=== PATIENT | male | born 1955 | race Caucasian/White ===

== ENCOUNTER 2017-01-05 13:03 | Emergency (ER) | payer OTHER ==
[2017-01-05 13:11] VITALS: BP 139/91; PULSE 74; TEMP 98.4; BMI 21.2
[2017-01-05] MEDS ORDERED: ONDANSETRON 4 MG/2 ML VIAL IVPUSH ONE (14:10)
[2017-01-05] MEDS ORDERED: morphine CARPU-JECT 4 MG/1 ML DISP.SYRIN IVPUSH ONE (14:10)
[2017-01-05] MEDS ORDERED: SODIUM CHLORIDE 1,000 ML IV ONE (14:14)
--- NOTE | 2017-01-05 14:21 | PDOC ---
Attending Attestation - Medical Decision Making 01/05/17 14:43 Procedure note Focused ED ultrasound performed RUQ and renal. indication: RUQ, right side abd pain finding: GB scanned with curvilinear probe, scanned in two planes Normal gallblader, no stones no wall thickening no wall edema. positive sonographic arriaga's Anterior gallbladder wall 2 mm CBD measured 4.8 mm impression: normal gallbladder cirilli focused ED ultrasound bilateral renals indication: flankpain finding : both kidneys scanned in saggital and transverse views. no hydronephrosis noted. bladder nondistended. impression : normal renal ultrasound, nondistended bladder. cirilli 01/05/17 14:48 <Loulou Mckeon - Last Filed: 01/05/17 14:43> - Resident Resident Name: Tree Paredes - ED Attending Attestation I have performed the following: I have examined & evaluated the patient, The case was reviewed & discussed with the resident, I agree w/resident's findings & plan, Exceptions are as noted - HPI HPI: 01/05/17 14:19 61-year-old male with history of hypertension, high cholesterol, diabetes presents with 3 days of intermittent right upper quadrant pain described as sharp, severe, but without associated fever/chills/nausea/vomiting, only slightly decreased appetite this morning. No history of postprandial abdominal pain, only surgical history was appendectomy in the distant past. - Physicial Exam PE: 01/05/17 14:21 Afebrile. Well-appearing, well-hydrated Abdomen is soft/nondistended. Tender with guarding in the right upper quadrant, no CVA tenderness No rash - Medical Decision Making 01/05/17 14:21 Patient seen and evaluated with the resident. I agree with the overall evaluation, assessment, and management with the following summary of visit: 61-year-old male with intermittent right upper quadrant pain for 3 days. Presentation and exam seem most consistent with biliary colic/cholecystitis, rule out gastric or renal source, less likely cardiopulmonary. Labs including lipase Urinalysis Right upper quadrant ultrasound Pain control, nausea control Reassess 01/05/17 16:14 no leukocytosis, normal chemistries. RUQ sono wnl. UA and EKG pending. Given R abd findings/guarding, will check CTAP. <Allen Sawrtz - Last Filed: 01/05/17 17:12> Heart Score/ECG Review #1 General ECG Interpretation: Sinus Rhythm, Normal Rate (69), Normal Intervals ( LVH), No acute ischemic changes <Allen Swartz - Last Filed: 01/05/17 17:12>
[2017-01-05] MEDS ORDERED: morphine CARPU-JECT 4 MG/1 ML DISP.SYRIN ONE (14:35)
[2017-01-05] MEDS ORDERED: ONDANSETRON 4 MG/2 ML VIAL ONE (14:35)
[2017-01-05 15:04] LABS: BASOPHIL 0.6 % (0-2.0); EOSINOPHIL 3.7 % (0-4.5); MCH 31.5 pg (25.7-33.7); MCHC 33.9 g/dl (32.0-35.9); MEAN CELL VOLUME 92.7 fl (80-96); MEAN PLT VOLUME 9.5 fl (7.5-11.1); NEUTROPHILS 67.6 % (42.8-82.8); PLATELET COUNT 241 K/MM3 (134-434); RDW 13.6 % (11.9-15.9); WHITE BLOOD COUNT 6.3 K/mm3 (4.0-10.0)
--- NOTE | 2017-01-05 15:04 | PDOC ---
History of Present Illness - General Chief Complaint: Pain Stated Complaint: RT SIDE/ABD PAIN Time Seen by Provider: 01/05/17 13:50 - History of Present Illness Initial Comments: 01/05/17 14:58 61 yo M with h/o HTN, DM, and appendectomy who presents with RUQ pain. Pt. reports worsening, non radiating, sharp, abdominal pain of 72 hours duration. Denies associated symptoms . Slight decrease in appetite. Denies N/V, fevers/ chills, chest pain, SOB, constipation/diarrhea, or blood in stool, back or flank pain, or urinary complaints. Denies postprandial pain, or exacerbating, or alleviating factors. Pain not alleviated with OTC denisse seltzer, pepcid, or positional change. States that he has had no recent change in diet, and endorses 1 pint of alcohol on weekends. Past History - Past Medical History Allergies/Adverse Reactions: Allergies Allergy/AdvReac Type Severity Reaction Status Date / Time No Known Allergies Allergy Verified 01/05/17 13:09 Home Medications: Ambulatory Orders Aspirin [Aspirin EC] 81 mg PO DAILY 01/05/17 Atorvastatin Ca [Lipitor] 80 mg PO HS 01/05/17 Clopidogrel Bisulfate [Plavix -] 75 mg PO DAILY 01/05/17 Lisinopril/Hydrochlorothiazide [Lisinopril-Hctz 10-12.5 mg Tab] 1 each PO DAILY 01/05/17 Metoprolol Succinate [Toprol Xl] 50 mg PO DAILY 01/05/17 Anemia: No Asthma: No Cancer: No Cardiac Disorders: No CVA: No COPD: No CHF: No Dementia: No Diabetes: Yes (IDDM) Disorders: Yes (PROSTATE DISEASE) HTN: Yes Hypercholesterolemia: Yes Liver Disease: No Seizures: No Thyroid Disease: No - Surgical History Abdominal Surgery: No Appendectomy: Yes Cardiac Surgery: No Cholecystectomy: No Lung Surgery: No Neurologic Surgery: No Orthopedic Surgery: No - Psycho/Social/Smoking Cessation Hx Anxiety: No Suicidal Ideation: No Smoking Status: No Smoking History: Never smoked Have you smoked in the past 12 months: No Number of Cigarettes Smoked Daily: 0 Hx Alcohol Use: Yes (OCCASIONAL) Drug/Substance Use Hx: No Substance Use Type: None Hx Substance Use Treatment: No Review of Systems - Review of Systems Comments:: 01/05/17 15:06 GENERAL/CONSTITUTIONAL: No fever or chills. No weakness. HEAD, EYES, EARS, NOSE AND THROAT: No change in vision. No ear pain or discharge. No sore throat. CARDIOVASCULAR: No chest pain or shortness of breath RESPIRATORY: No cough, wheezing, or hemoptysis. GASTROINTESTINAL: Abdominal pain No nausea, vomiting, diarrhea or constipation. GENITOURINARY: No dysuria, frequency, or change in urination. MUSCULOSKELETAL: No joint or muscle swelling or pain. No neck or back pain. SKIN: No rash NEUROLOGIC: No headache, vertigo, loss of consciousness, or change in strength/ sensation. ENDOCRINE: No increased thirst. No abnormal weight change HEMATOLOGIC/LYMPHATIC: No anemia, easy bleeding, or history of blood clots. ALLERGIC/IMMUNOLOGIC: No hives or skin allergy. *Physical Exam - Vital Signs Last Vital Signs Temp Pulse Resp BP Pulse Ox 98.4 F 74 18 139/91 98 01/05/17 13:09 01/05/17 13:09 01/05/17 13:09 01/05/17 13:09 01/05/17 13:09 - Physical Exam Comments: 01/05/17 15:06 GENERAL: Awake, alert, and fully oriented, in no acute distress HEAD: No signs of trauma, normocephalic, atraumatic EYES: PERRLA, EOMI, sclera anicteric, conjunctiva clear ENT: Auricles normal inspection, hearing grossly normal, nares patent, oropharynx clear without exudates. Moist mucosa NECK: Normal ROM, supple, no lymphadenopathy, JVD, or masses LUNGS: No distress, speaks full sentences, clear to auscultation bilaterally HEART: Regular rate and rhythm, normal S1 and S2, no murmurs, rubs or gallops, peripheral pulses normal and equal bilaterally. ABDOMEN: TTP in RUQ. Soft, normoactive bowel sounds. No guarding, no rebound. No masses. Absent rigidity, rebound, or guarding. Absent pulsatile abdomen. Absent flank pain. EXTREMITIES: Normal inspection, Normal range of motion, no edema. No clubbing or cyanosis. NEUROLOGICAL: Cranial nerves II through XII grossly intact. Normal speech, normal gait, no focal sensorimotor deficits SKIN: Warm, Dry, normal turgor, no rashes or lesions noted. Heart Score/ECG Review - Electrocardiogram EKG: Normal - Age Age: 45-65 - Risk Factors Risk Factors Heart Score: Yes Hx Hypertension, Yes Hx Diabetes - ECG Intrepretation Rhythm: Regular Rhythm - Harwood Harwood: Normal - P and UT Prominent R with upright T in V1 (true posterior DE): No Delta Wave(s) Present: No WPW: No - QRS Poor R Wave Progression: No - ST and T Early Repolarization: No Non Specific ST-T Wave changes: No Flattened T Waves: No Prolonged Q-T Interval: No - ECG Impressions Normal ECG: Yes Non-specific ST Elevation: No Ischemic Changes: No Bradycardia: No Torsades maria elena Pointes: No WPW: No ED Treatment Course - LABORATORY CBC & Chemistry Diagram: 01/05/17 14:45 01/05/17 14:45 - RADIOLOGY Radiology Studies Ordered: Category Date Time Status ABDOMEN US -LIMITED [US] Stat Ultrasound 01/05/17 14:11 Ordered Radiograph Interpretation: 01/05/17 15:54 Compared to prior upper abdomen ultrasound dated 01/28/2013 The liver is within normal limits in size with a slightly dense echotexture. Gallbladder is adequately distended without intraluminal stones or thickening of its wall. No intra or extrahepatic bile duct dilatation is seen. The right kidney measures 10.4 cm sagittal length and appears unremarkable. Visualized portion of the pancreas appears unremarkable Visualized portion of the proximal abdominal aorta and inferior vena cava appear unremarkable. Normal flow in the main portal vein IMPRESSION: Probable mild fatty infiltration of the liver. No gallstones identified. 01/05/17 19:38 EXAM#: TYPE/EXAM: RESULT: [id number] CT/ABDOMEN PELVIS CT WITH CONTR HISTORY PROVIDED: Right upper quadrant pain. Sequential axial images were obtained from the domes of the diaphragms through the symphysis pubis following the administration of both oral and intravenous contrast material. The lung bases are clear. The liver is normal in size. It is mildly hypodense in texture consistent with diffuse fatty infiltration. No mass lesions are identified within the liver. The spleen, pancreas, adrenal glands and kidneys demonstrate no significant abnormalities. There is a small left renal cyst present. The gallbladder is clear. There is no evidence of intra- abdominal or retroperitoneal lymphadenopathy or fluid collections. There is no evidence of pneumoperitoneum, bowel obstruction or intra-abdominal abscess. There is no CT evidence of acute appendicitis or diverticulitis. Examination of the pelvis demonstrates no evidence of pelvic masses, fluid collections or lymphadenopathy. IMPRESSION: Mild diffuse fatty infiltration of the liver. No evidence of acute pathology within the abdomen or pelvis. Reported By: Thuan Ma MD 01/05/17 1858 Tree Paredes Medical Decision Making - Medical Decision Making 01/05/17 15:07 61 yo M with h/o HTN, DM, and appendectomy who presents with RUQ pain. Pt. reports worsening, non radiating, sharp, RUQ abdominal pain of 72 hours duration. Denies associated symptoms. Physical exam reveals RUQ tenderness and hemodynamic stability. DDx: choleithiasis, choleycystitis, pancreatitis, Cholangitis, Diverticulitis, Colitis, PUD ED Course: CBC: Unremarkable CMP Lipase Morphine 4 mg Ondansetron 4 mg Abdominal U/S GALLBLADDER 01/05/17 15:53 CBC, CMP, Lipase: Unremarkable 01/05/17 15:54 RUQ U/S: IMPRESSION: Probable mild fatty infiltration of the liver. No gallstones identified. CT ABDOMEN: IMPRESSION: Mild diffuse fatty infiltration of the liver. No evidence of acute pathology within the abdomen or pelvis. Reported By: Thuan Ma MD 01/05/17 1858 Tree Paredes *DC/Admit/Observation/Transfer Diagnosis at time of Disposition: Fatty infiltration of liver Abdominal pain Qualifiers: Abdominal location: right upper quadrant Qualified Code(s): R10.11 - Right upper quadrant pain - Discharge Dispostion Disposition: HOME Condition at time of disposition: Improved Admit: No - Patient Instructions Printed Discharge Instructions: Nonalcoholic Fatty Liver Disease Additional Instructions: Please return to ED if you experience nausea/vomiting, fevers/chills, worsening abdominal pain, chest pain, shortness of breath., or worsening symptoms. Please f/u with your pcp for further evaluation and workup. Print Language: LAO - Attestations Physician Attestion: 01/05/17 19:39 I, Dr. Tree Paredes, attest that this document has been prepared under my direction and personally reviewed by me in its entirety. I further attest, that it accurately reflects all work, treatment, procedures and medical decision -making performed by me.
[2017-01-05 15:37] LABS: ANION GAP 10 (8-16); BILIRUBIN,TOTAL 0.7 mg/dL (0.2-1.0); CALCIUM 9.2 mg/dL (8.5-10.1); CO2 28 mmol/L (21-32); CREATININE 1.2 mg/dL (0.7-1.3); GLUCOSE,RANDOM 102 mg/dL (74-106); SGOT/AST 25 U/L (15-37); TOT PROT 7.9 g/dl (6.4-8.2)
[2017-01-05 15:38] LABS: ALK PHOS 101 U/L (45-117); SGPT/ALT 34 U/L (12-78)
[2017-01-05 18:12] LABS: URINE APPEARANCE CLEAR; URINE BILIRUBIN NEGATIVE (NEGATIVE); URINE BLOOD NEGATIVE (NEGATIVE); URINE COLOR STRAW; URINE GLUCOSE (UA) 2+ (NEGATIVE); URINE KETONE NEGATIVE (NEGATIVE); URINE LEUK ESTERASE NEGATIVE (NEGATIVE); URINE NITRITE NEGATIVE (NEGATIVE); URINE PROTEIN NEGATIVE (NEGATIVE); URINE UROBILINOGEN NEGATIVE mg/dL (0.2-1.0)
--- NOTE | 2017-01-06 14:45 | EKG ---
Test Reason : Blood Pressure : / mmHG Vent. Rate : 069 BPM Atrial Rate : 069 BPM P-R Int : 132 ms QRS Dur : 086 ms QT Int : 416 ms P-R-T Axes : 043 -08 023 degrees QTc Int : 445 ms POOR DATA QUALITY, INTERPRETATION MAY BE ADVERSELY AFFECTED NORMAL SINUS RHYTHM MODERATE VOLTAGE CRITERIA FOR LVH, MAY BE NORMAL VARIANT BORDERLINE ECG WHEN COMPARED WITH ECG OF 10-APR-2013 08:31, QRS DURATION HAS DECREASED NONSPECIFIC T WAVE ABNORMALITY, IMPROVED IN INFERIOR LEADS T WAVE INVERSION NO LONGER EVIDENT IN LATERAL LEADS Confirmed by PAULINO HORTA MD ([id number]) on 01/06/2017 2:45:18 PM Referred By: CONY Confirmed By:PAULINO HORTA MD
== END 2017-01-05 20:00 | disposition home or self-care (01) ==
LOC: JER 13:03
PROC: 3E033NZ Introduction of Analgesics, Hypnotics, Sedatives into Peripheral Vein, Percutaneous Approach (ICD-10-PCS; principal; 2017-01-05)
PROC: 3E033GC Introduction of Other Therapeutic Substance into Peripheral Vein, Percutaneous Approach (ICD-10-PCS; 2017-01-05)
PROC: 3E0337Z Introduction of Electrolytic and Water Balance Substance into Peripheral Vein, Percutaneous Approach (ICD-10-PCS; 2017-01-05)
DX: K76.0 Fatty (change of) liver, not elsewhere classified (principal); R10.11 Right upper quadrant pain
CPT/HCPCS: 36415; 74177-TC; 76705-TC; 80053; 81003; 83690; 85025; 93005; 93010; 96361; 96374; 96375; 99282-25; Q9967

== ENCOUNTER 2022-04-09 10:29 | Inpatient (IN) | payer MEDICARE, OTHER ==
[2022-04-09] MEDS ORDERED: ASPIRIN 81 MG CHEWABLE TABLETS PO ONE (11:35)
[2022-04-09] MEDS ORDERED: ASPIRIN 81 MG CHEWABLE TABLETS ONE (11:44)
[2022-04-09 12:53] LABS: EOS % 7.8 % (0-4.5); HEMATOCRIT 40.3 % (35.4-49); HEMOGLOBIN 13.7 GM/dL (11.7-16.9); LYMPH % 18.3 % (8-40); MCH 31.7 pg (25.7-33.7); MEAN CELL VOLUME 93.4 fl (80-96); MEAN PLT VOLUME 9.9 fl (7.5-11.1); MONO % 11.1 % (3.8-10.2); NEUT % 61.8 % (42.8-82.8); PLATELET COUNT 209 10^3/uL (134-434); RBC 4.32 M/mm3 (4.00-5.60); WHITE BLOOD COUNT 5.1 K/mm3 (4.0-10.0)
[2022-04-09 13:07] LABS: INR 0.93 (0.83-1.09); PROTHROMBIN TIME (PATIENT) 10.7 SEC (9.7-13.0)
[2022-04-09 13:09] LABS: ACTIVATED PTT 29.9 SECONDS (25.2-36.5)
[2022-04-09 13:22] LABS: BLOOD UREA NITROGEN 35.1 mg/dL (7-18); CALCIUM 9.5 mg/dL (8.5-10.1)
[2022-04-09 13:23] LABS: MAGNESIUM 2.1 mg/dL (1.8-2.4)
[2022-04-09 13:25] LABS: CREATININE 1.7 mg/dL (0.55-1.3)
[2022-04-09 13:27] LABS: BILIRUBIN,TOTAL 0.3 mg/dL (0.2-1); TOT PROT 7.7 g/dl (6.4-8.2)
[2022-04-09] MEDS ORDERED: SODIUM CHLORIDE 0.9% 500 ML INFUS.BAG IV ONE (13:37)
[2022-04-09] MEDS ORDERED: ACETAMINOPHEN 325 MG TABLET (FP) PO PRN (14:41)
[2022-04-09] MEDS ORDERED: ATORVASTATIN CA 80 MG TABLET (FP) PO ONE (14:46)
[2022-04-09 17:37] LABS: BLOOD UREA NITROGEN 35.8 mg/dL (7-18)
[2022-04-09 17:40] LABS: CREATININE 1.7 mg/dL (0.55-1.3)
[2022-04-09] MEDS ORDERED: amLODIPine BESYLATE 10 MG TABLET (FP) ONE (17:42)
[2022-04-09] MEDS: INSULIN SLIDING SCALE (NOVOLOG) 1 VIAL SQ SCH (17:46)
[2022-04-09] MEDS: amLODIPine BESYLATE 10 MG TABLET (FP) PO SCH (17:47)
[2022-04-09 18:32] VITALS: BMI 22.1
[2022-04-09] MEDS: SODIUM CHLORIDE 1,000 ML IV SCH ×2 (18:40→19:02)
[2022-04-09] MEDS: LACTATED RINGERS SOLUTION 1,000 ML/1,000 ML INFUS.BAG IV SCH ×2 (18:45→19:03)
[2022-04-09] MEDS ORDERED: CARVEDILOL 6.25 MG TABLET (FP) PO SCH ×2 (22:00)
[2022-04-09] MEDS ORDERED: ATORVASTATIN CA 80 MG TABLET (FP) PO SCH (22:00)
[2022-04-10] MEDS: INSULIN SLIDING SCALE (NOVOLOG) 1 VIAL SQ SCH ×3 (06:21→16:44)
[2022-04-10 08:23] LABS: BASO % 0.8 % (0-2.0); EOS % 10.2 % (0-4.5); HEMATOCRIT 38.3 % (35.4-49); HEMOGLOBIN 12.9 GM/dL (11.7-16.9); LYMPH % 18.3 % (8-40); MCH 31.3 pg (25.7-33.7); MCHC 33.6 g/dl (32.0-35.9); MEAN CELL VOLUME 92.9 fl (80-96); MEAN PLT VOLUME 9.9 fl (7.5-11.1); MONO % 12.2 % (3.8-10.2); NEUT % 58.5 % (42.8-82.8); PLATELET COUNT 191 10^3/uL (134-434); RBC 4.12 M/mm3 (4.00-5.60); RDW 13.6 % (11.9-15.9); WHITE BLOOD COUNT 5.4 K/mm3 (4.0-10.0)
[2022-04-10 08:55] LABS: BLOOD UREA NITROGEN 27.4 mg/dL (7-18)
[2022-04-10 08:57] LABS: CREATININE 1.3 mg/dL (0.55-1.3)
[2022-04-10 08:59] LABS: PHOSPHOROUS 2.6 mg/dL (2.5-4.9)
[2022-04-10] MEDS ORDERED: HYDROCHLOROTHIAZIDE 12.5 MG CAPSULE (FP) PO SCH (10:00)
[2022-04-10] MEDS ORDERED: amLODIPine BESYLATE 10 MG TABLET (FP) PO SCH (10:00)
[2022-04-10] MEDS ORDERED: LISINOPRIL 10 MG TABLET PO SCH (10:00)
[2022-04-10] MEDS ORDERED: VALSARTAN 40 MG TABLET PO SCH (10:00)
[2022-04-10] MEDS ORDERED: REGADENOSON 0.4 MG/5 ML PRE-FILLED SYRINGE IVPUSH ONE ×2 (11:37→12:00)
[2022-04-10] MEDS: ASPIRIN COATED 81 MG TABLET.EC PO SCH (13:12)
[2022-04-10] MEDS: amLODIPine BESYLATE 10 MG TABLET (FP) PO SCH (13:13)
[2022-04-10] MEDS: GABAPENTIN 100 MG CAPSULE PO SCH (13:13)
[2022-04-10] MEDS: ENOXAPARIN NA (PORCINE) 40 MG/0.4 ML DISP.SYRIN SQ SCH (13:15)
[2022-04-10] MEDS ORDERED: VALSARTAN 40 MG TABLET PO ONE (14:08)
[2022-04-10] MEDS: CARVEDILOL 6.25 MG TABLET (FP) PO SCH ×2 (14:36→21:33)
[2022-04-10 16:32] LABS: CREATININE, URINE RANDOM < 13.0 mg/dL (30-150)
[2022-04-10] MEDS: ATORVASTATIN CA 80 MG TABLET (FP) PO SCH (21:36)
[2022-04-11] MEDS: INSULIN SLIDING SCALE (NOVOLOG) 1 VIAL SQ SCH ×3 (06:26→17:27)
[2022-04-11 07:23] LABS: HEMATOCRIT 41.3 % (35.4-49); MCH 31.4 pg (25.7-33.7); MCHC 33.9 g/dl (32.0-35.9); MEAN CELL VOLUME 92.7 fl (80-96); MEAN PLT VOLUME 9.9 fl (7.5-11.1); PLATELET COUNT 197 10^3/uL (134-434); RBC 4.45 M/mm3 (4.00-5.60); RDW 13.8 % (11.9-15.9); WHITE BLOOD COUNT 5.3 K/mm3 (4.0-10.0)
[2022-04-11 07:52] LABS: ALBUMIN 3.9 g/dl (3.4-5.0); CALCIUM 9.4 mg/dL (8.5-10.1)
[2022-04-11 07:53] LABS: BLOOD UREA NITROGEN 32.6 mg/dL (7-18)
[2022-04-11 07:56] LABS: CREATININE 1.8 mg/dL (0.55-1.3)
[2022-04-11 07:58] LABS: BILIRUBIN,TOTAL 0.3 mg/dL (0.2-1); TOT PROT 7.2 g/dl (6.4-8.2)
[2022-04-11] MEDS: GABAPENTIN 100 MG CAPSULE PO SCH (09:36)
[2022-04-11] MEDS: ENOXAPARIN NA (PORCINE) 40 MG/0.4 ML DISP.SYRIN SQ SCH (09:36)
[2022-04-11] MEDS: amLODIPine BESYLATE 10 MG TABLET (FP) PO SCH (09:36)
[2022-04-11] MEDS: CARVEDILOL 6.25 MG TABLET (FP) PO SCH ×2 (09:36→22:53)
[2022-04-11] MEDS: ASPIRIN COATED 81 MG TABLET.EC PO SCH (09:36)
[2022-04-11] MEDS: VALSARTAN 40 MG TABLET PO SCH (09:36)
[2022-04-11] MEDS ORDERED: SODIUM CHLORIDE 0.45% 1,000 ML IV SCH (20:45)
[2022-04-11] MEDS: ATORVASTATIN CA 80 MG TABLET (FP) PO SCH (22:54)
[2022-04-12] MEDS: INSULIN SLIDING SCALE (NOVOLOG) 1 VIAL SQ SCH ×3 (06:34→17:30)
[2022-04-12 08:18] LABS: BASO % 0.8 % (0-2.0); HEMATOCRIT 39.3 % (35.4-49); HEMOGLOBIN 13.4 GM/dL (11.7-16.9); LYMPH % 20.5 % (8-40); MCH 31.4 pg (25.7-33.7); MCHC 34.1 g/dl (32.0-35.9); MEAN CELL VOLUME 92.2 fl (80-96); MEAN PLT VOLUME 10.3 fl (7.5-11.1); MONO % 14.7 % (3.8-10.2); PLATELET COUNT 177 10^3/uL (134-434); RBC 4.26 M/mm3 (4.00-5.60); RDW 13.4 % (11.9-15.9); WHITE BLOOD COUNT 5.2 K/mm3 (4.0-10.0)
[2022-04-12 08:40] LABS: ALBUMIN 3.5 g/dl (3.4-5.0); BLOOD UREA NITROGEN 44.2 mg/dL (7-18); CALCIUM 8.9 mg/dL (8.5-10.1)
[2022-04-12 08:42] LABS: CREATININE 1.9 mg/dL (0.55-1.3); MAGNESIUM 1.7 mg/dL (1.8-2.4); PHOSPHOROUS 3.9 mg/dL (2.5-4.9)
[2022-04-12 08:43] LABS: BILIRUBIN,TOTAL 0.3 mg/dL (0.2-1); TOT PROT 6.8 g/dl (6.4-8.2)
[2022-04-12] MEDS: CARVEDILOL 6.25 MG TABLET (FP) PO SCH ×2 (09:31→21:38)
[2022-04-12] MEDS: ASPIRIN COATED 81 MG TABLET.EC PO SCH (09:31)
[2022-04-12] MEDS: GABAPENTIN 100 MG CAPSULE PO SCH (09:31)
[2022-04-12] MEDS: VALSARTAN 40 MG TABLET PO SCH (09:31)
[2022-04-12] MEDS: ENOXAPARIN NA (PORCINE) 40 MG/0.4 ML DISP.SYRIN SQ SCH (09:31)
[2022-04-12] MEDS: amLODIPine BESYLATE 10 MG TABLET (FP) PO SCH (09:31)
[2022-04-12] MEDS ORDERED: NITROGLYCERIN SUBLINGUAL 1/150 0.4 MG TAB SL ONE (11:16)
[2022-04-12] MEDS: ISOSORBIDE MONONITRATE 30 MG TAB.SR.24H (FP) PO SCH (12:51)
[2022-04-12] MEDS: ATORVASTATIN CA 80 MG TABLET (FP) PO SCH (21:38)
[2022-04-13] MEDS: INSULIN SLIDING SCALE (NOVOLOG) 1 VIAL SQ SCH ×3 (06:32→17:44)
[2022-04-13] MEDS: ENOXAPARIN NA (PORCINE) 40 MG/0.4 ML DISP.SYRIN SQ SCH (10:03)
[2022-04-13] MEDS: VALSARTAN 40 MG TABLET PO SCH (10:04)
[2022-04-13] MEDS: GABAPENTIN 100 MG CAPSULE PO SCH (10:04)
[2022-04-13] MEDS: ISOSORBIDE MONONITRATE 30 MG TAB.SR.24H (FP) PO SCH (10:04)
[2022-04-13] MEDS: ASPIRIN COATED 81 MG TABLET.EC PO SCH (10:05)
[2022-04-13] MEDS: CARVEDILOL 6.25 MG TABLET (FP) PO SCH ×2 (10:05→22:43)
[2022-04-13] MEDS: amLODIPine BESYLATE 10 MG TABLET (FP) PO SCH (10:05)
[2022-04-13 14:49] VITALS: RESP 18
[2022-04-13] MEDS: ATORVASTATIN CA 80 MG TABLET (FP) PO SCH (22:43)
[2022-04-14 00:52] VITALS: BP 137/70; PULSE 69; TEMP 98.5
== END 2022-04-14 01:10 | disposition short-term general hospital (02) | DRG 303 ==
LOC: JER 10:29 → JERBED 11:36 → J4W 17:58 → OBSVTOIN 04-11 18:36
PROVIDERS: ADMIT Internal Medicine; ATTEND Internal Medicine
DX: I25.110 Atherosclerotic heart disease of native coronary artery with unstable angina pectoris (principal); N17.9 Acute kidney failure, unspecified; I25.9 Chronic ischemic heart disease, unspecified; E11.9 Type 2 diabetes mellitus without complications; I10 Essential (primary) hypertension; E78.5 Hyperlipidemia, unspecified; E78.00 Pure hypercholesterolemia, unspecified; R06.09 Other forms of dyspnea; Z95.5 Presence of coronary angioplasty implant and graft; R07.9 Chest pain, unspecified
CPT/HCPCS: 0241U-QW; 36415; 71046-TC-FY; 76775-TC; 78452-TC; 80048; 80053; 82550; 82570; 82962; 83036; 83735; 84100; 84156; 84300; 84443; 84484; 85025; 85027; 85610; 85730; 93005; 93010; 93017; 93306-TC; 99285-25; A9502; G0378; J2785